=== PATIENT | female | born 1990 | race Hispanic/Latino ===

== ENCOUNTER 2022-11-02 06:44 | Day surgery (SDC) | payer MEDICAID ==
[2022-10-30 12:47] LABS: BASOPHILS % (AUTO) 0.7 % (0.0-5.0); EOSINOPHILS % (AUTO) 1.6 % (0.0-8.0); HEMATOCRIT 41.7 % (36-48); LYMPHOCYTES % (AUTO) 29.6 % (21.0-51.0); MEAN CORPUSCULAR HEMOGLOBIN 28.5 pg (27.0-33.0); MEAN CORPUSCULAR HGB CONC 33.1 g/dL (32.0-36.0); MONOCYTES % (AUTO) 8.2 % (3.0-13.0); NEUTROPHILS % (AUTO) 59.4 % (40.0-77.0); PLATELET COUNT (AUTO) 286 K/uL (130-400); RED BLOOD CELL COUNT(AUTO) 4.85 MIL/uL (4.00-5.50); RED CELL DISTRIBUTION WIDTH 14.4 % (11.0-15.5); WHITE BLOOD COUNT (AUTO) 8.1 K/uL (4.8-10.8)
[2022-11-02] VITALS (17 sets, daily range): BP systolic 91–105; BP diastolic 38–98
[~2022-11-02] VITALS: Ht 172.7 cm; Wt 63.3 kg
[~2022-11-02 06:44] MED LIST: CEFAZOLIN SODIUM 2 GM VIAL ONE; LACTATED RINGERS 1000ML 1,000 ML IV ONE
[2022-11-02] MEDS ORDERED: MIDAZOLAM HCL 1 MG/ML 2ML VIAL ONE (06:52)
[2022-11-02] MEDS ORDERED: LIDOCAINE PF 100MG/5ML (2%) SYRINGE 5ML ONE (06:52)
[2022-11-02] MEDS ORDERED: DEXAMETHASONE SOD PHOSPHATE 10MG/ML 1ML VIAL ONE (06:52)
[2022-11-02] MEDS ORDERED: SUCCINYLCHOLINE 200MG/10ML SYR ONE (06:52)
[2022-11-02] MEDS ORDERED: PHENYLEPHRINE HCL 10 MG/ML 1ML VIAL IV ONE (06:53)
[2022-11-02] MEDS ORDERED: ROCURONIUM 10MG/1ML SYR 10 MG/ML ML ONE (06:53)
[2022-11-02] MEDS ORDERED: PROPOFOL 10 MG/ML 20ML VIAL IV ONE (06:53)
[2022-11-02] MEDS ORDERED: FENTANYL CITRATE PF 50 MCG/1 ML 2ML VIAL ONE (06:53)
[2022-11-02] MEDS ORDERED: ONDANSETRON 4MG INJ ONE (06:53)
[2022-11-02] MEDS ORDERED: DEXMEDETOMIDINE HCL 200 MCG/2 ML VIAL IV ONE (07:01)
[2022-11-02] MEDS ORDERED: BUPIVACAINE/PF 0.25% 30ML VIAL IJ ONE ×2 (07:09→08:10)
[2022-11-02] MEDS ORDERED: CLINDAMYCIN IVPB 900MG/50ML 50 ML IV ONE (07:32)
[2022-11-02] MEDS ORDERED: KETOROLAC 30MG VIAL (30MG/ML) ONE (08:02)
[2022-11-02] MEDS ORDERED: GLYCOPYRROLATE 1 MG/5 ML SYRINGE ONE (08:21)
[2022-11-02] MEDS ORDERED: NEOSTIGMINE 5MG/5ML SYR IV ONE (08:21)
[2022-11-02] MEDS ORDERED: MEPERIDINE-PF 25 MG/ML SYG ONE (08:56)
== END 2022-11-02 10:15 | disposition home or self-care (01) ==
LOC: DAH 06:44
PROVIDERS: ATTEND Obstetrics & Gynecology
DX: Z30.2 Encounter for sterilization (principal); Z20.822 Contact with and (suspected) exposure to COVID-19; N81.2 Incomplete uterovaginal prolapse; Z79.01 Long term (current) use of anticoagulants; Z79.899 Other long term (current) drug therapy; Z88.0 Allergy status to penicillin
CPT/HCPCS: 84703; 85025; 86850 ×2; 86900 ×2; 86901 ×2; 87426; 36415 ×2; 58670; 81025; A6260; A4351; A4606; J7120; J3010; J0330; J3490 ×5; J1100; J2710; S0020 ×2; J2250; J2405; J1885; J2175; J2370; C1769 ×3; G0168; A4649; A4215 ×2; A4930; A4223; A4222; A4221; A4663; J2001; J2704

== ENCOUNTER 2022-11-09 13:59 | Emergency (ER) | payer MEDICAID ==
[~2022-11-09] VITALS: Ht 172.7 cm; Wt 67.6 kg
[2022-11-09 14:55] LABS: BASOPHILS % (AUTO) 0.7 % (0.0-5.0); EOSINOPHILS % (AUTO) 1.5 % (0.0-8.0); HEMATOCRIT 41.1 % (36-48); LYMPHOCYTES % (AUTO) 31.2 % (21.0-51.0); MEAN CORPUSCULAR HEMOGLOBIN 28.2 pg (27.0-33.0); MEAN CORPUSCULAR HGB CONC 32.8 g/dL (32.0-36.0); MEAN CORPUSCULAR VOLUME 85.8 fL (79-99); NEUTROPHILS % (AUTO) 57.2 % (40.0-77.0); PLATELET COUNT (AUTO) 271 K/uL (130-400); RED BLOOD CELL COUNT(AUTO) 4.79 MIL/uL (4.00-5.50); RED CELL DISTRIBUTION WIDTH 14.6 % (11.0-15.5); WHITE BLOOD COUNT (AUTO) 6.9 K/uL (4.8-10.8)
[2022-11-09 15:24] LABS: CREATININE 0.5 mg/dL (0.5-1.5); POTASSIUM 3.3 mmol/L (3.5-5.1)
[2022-11-09 15:31] LABS: ALBUMIN 3.7 g/dL (3.5-5.0); TOTAL PROTEIN, SERUM 7.8 g/dL (6.0-8.3)
[2022-11-09] MEDS ORDERED: POTASSIUM BICARB/CIT AC 25 MEQ TABLET.EFF PO SCH (16:30)
[2022-11-09 19:38] VITALS: BP 115/60
== END 2022-11-09 19:44 | disposition home or self-care (01) ==
LOC: EDH 13:59
DX: N93.9 Abnormal uterine and vaginal bleeding, unspecified (principal); Z88.0 Allergy status to penicillin; Z98.890 Other specified postprocedural states
CPT/HCPCS: 36415; 76857; 80053; 85025; 86850; 86900; 86901